=== PATIENT | female | born 1985 | race Caucasian/White ===

== ENCOUNTER 2017-05-05 11:16 | Emergency (ER) | payer OTHER ==
[~2017-05-05] VITALS: Ht 160 cm; Wt 70.1 kg
[~2017-05-05 11:16] MED LIST: ZOLOFT100 M1 PO
[2017-05-05 11:50] LABS: APPEARANCE SL.HAZY ((CLEAR)); BILIRUBIN NEGATIVE; BLOOD MODERATE; COLOR YELLOW ((YELLOW)); GLUCOSE (STRIP) NEGATIVE; KETONES 5; LEUKOCYTES NEGATIVE; NITRITE NEGATIVE; PROTEIN (STRIP) 30; SPECIFIC GRAVITY 1.025 (1.000-1.030); UROBILINOGEN 0.2 MG/DL (0.2-1.0)
[2017-05-05 12:21] LABS: EPITHELIAL CELLS 1+ /HPF; RED BLOOD CELLS NONE SEEN /HPF (0-5); WHITE BLOOD CELLS 0-5 /HPF (0-5)
[2017-05-05 12:22] LABS: BACTERIA 1+ /HPF; MUCUS 1+ /LPF; UCUL ADDED? NO
[2017-05-05 13:52] LABS: HEMATOCRIT 40.7 % (36.0-46.0); HEMOGLOBIN 14.4 G/DL (11.9-15.5); MCH 32.9 PG (29.0-34.0); MCHC 35.4 G/DL (30.0-36.0); MCV 92.9 FL (83-99); PLATELET COUNT 210 K/uL (156-360); RBC DIS.WIDTH-SD 41.2 % (39-53); RED BLOOD COUNT 4.38 M/uL (3.80-5.20); WHITE BLOOD COUNT 15.5 K/uL (4.1-10.2)
[2017-05-05 14:17] LABS: ALBUMIN 4.8 g/dL (3.2-4.8)
[2017-05-05 14:18] LABS: CHLORIDE 107 mEq/L (99-109); POTASSIUM 4.9 mEq/L (3.7-5.4); SODIUM 143 mEq/L (136-147)
[2017-05-05 14:20] LABS: GLUCOSE 94 mg/dL (70-99); TOTAL PROTEIN 7.7 g/dL (6.4-8.3)
[2017-05-05 14:22] LABS: TOTAL BILIRUBIN 0.4 mg/dL (0.0-1.0)
[2017-05-05 14:23] LABS: ALKALINE PHOSPHATASE 55 IU/L (3-129)
[2017-05-05 14:24] LABS: CREATININE 0.9 mg/dL (0.6-1.3); GFR ESTIMATE (CALCULATED) > 59 mL/min/
[2017-05-05 14:25] LABS: AST (GOT) 22 IU/L (2-34); UREA NITROGEN (BUN) 12 mg/dL (9-23)
[2017-05-05 14:27] LABS: ALT (GPT) 17 IU/L (3-49); LIPASE 14 U/L (1.0-51.0)
[2017-05-05 14:33] LABS: QUANTITATIVE HCG < 4.0 MIU/ML
[2017-05-05] MEDS ORDERED: ZOFRAN4 MG SL (17:23)
[2017-05-05] MEDS ORDERED: BACTRIM,SEPT1 TABLET PO (17:23)
[2017-05-05 17:46] VITALS: BP 107/57
[2017-05-05] MEDS ORDERED: DIFLUCAN150 MG PO (17:48)
== END 2017-05-05 17:48 | disposition home or self-care (01) ==
LOC: RME 11:16 → EME 11:16 → RME 17:48
DX: N12 Tubulo-interstitial nephritis, not specified as acute or chronic (principal); K83.8 Other specified diseases of biliary tract
CPT/HCPCS: 74177; 80053; 81003; 83690; 84702; 85027; 99281; 99285; J0696; J1885; J2405; J7030